=== PATIENT | male | born 1965 | race Caucasian/White ===

== ENCOUNTER 2022-06-26 20:29 | Emergency (ER) | payer MEDICAID ==
[~2022-06-26] VITALS: Ht 182.9 cm; Wt 90.9 kg
[2022-06-26] MEDS ORDERED: ipratropium/albuterol 3ml nebule NEB ONE (20:45)
[2022-06-26 21:53] VITALS: BP 163/102
== END 2022-06-26 21:58 ==
LOC: ER 20:29
DX: F10.129 Alcohol abuse with intoxication, unspecified (principal); J44.9 Chronic obstructive pulmonary disease, unspecified; Z72.89 Other problems related to lifestyle; Y90.9 Presence of alcohol in blood, level not specified
CPT/HCPCS: 93005; 94640; 94760; 99283